=== PATIENT | male | born 1980 | race African-American/Black ===

== ENCOUNTER 2017-04-28 07:52 | Inpatient (IN) | payer MEDICAID ==
[2017-04-28] VITALS (14 sets, daily range): BP systolic 121–187
[~2017-04-28] VITALS: Ht 195.6 cm; Wt 88.0 kg
[2017-04-28] MEDS ORDERED: ONDANSETRON HCL 4 MG/2 ML VIAL IVP ONE (08:15)
[2017-04-28] MEDS ORDERED: PANT40TA4 PO (08:28)
[2017-04-28] MEDS ORDERED: HYDR-4100 PO (08:28)
[2017-04-28] MEDS ORDERED: LIP40 PO (08:30)
[2017-04-28] MEDS ORDERED: LABE200T28 PO (08:33)
[2017-04-28] MEDS ORDERED: CAT.2 PO (08:33)
[2017-04-28] MEDS ORDERED: NOR10 PO (08:33)
[2017-04-28 08:36] LABS: BASOPHILS % (AUTO) 0.3 % (0.0-2.0); EOSINOPHILS % (AUTO) 0.1 % (0.0-4.0); HEMATOCRIT 27.9 % (36-54); LYMPHOCYTES # (AUTO) 0.8 K/uL (1.0-5.5); LYMPHOCYTES % (AUTO) 6.6 % (20.5-51.5); MEAN CORPUSCULAR HEMOGLOBIN 28 pg (27-31); MEAN CORPUSCULAR HGB CONC 32 % (32-36); MEAN CORPUSCULAR VOLUME 88 fL (79.0-98.0); MONOCYTES # (AUTO) 0.9 K/uL (0.0-1.0); MONOCYTES % (AUTO) 7.7 % (1.7-9.3); NEUTROPHILS # (AUTO) 9.8 K/uL (1.8-7.7); NEUTROPHILS % (AUTO) 85.3 % (40.0-70.0); PLATELET COUNT (AUTO) 495 K/uL (130-430); RED BLOOD CELL COUNT(AUTO) 3.17 MIL/uL (4.2-6.2); RED CELL DISTRIBUTION WIDTH 17.3 % (9.0-15.0); WHITE BLOOD COUNT (AUTO) 11.5 K/uL (4.8-10.8)
[2017-04-28] MEDS ORDERED: ASPI-1047 PO (08:38)
[2017-04-28] MEDS ORDERED: HYDR100T25 PO (08:38)
[2017-04-28] MEDS ORDERED: NEU100 PO (08:38)
[2017-04-28] MEDS ORDERED: CALC0.258 PO (08:38)
[2017-04-28] MEDS ORDERED: DOXA2TAB PO (08:45)
[2017-04-28] MEDS ORDERED: ACET325T53 PO (08:45)
[2017-04-28] MEDS ORDERED: INSU100V11 SQ (08:45)
[2017-04-28 08:50] LABS: PROTHROMBIN TIME 10.1 SECS (9.5-12.5)
[2017-04-28 08:57] LABS: ALANINE AMINOTRANSFERASE 21 U/L (12-78); ALBUMIN 2.8 g/dL (3.4-4.8); ANION GAP 23 (5-15); ASPARTATE AMINOTRANSFERASE 28 U/L (10-37); CALCIUM 9.2 mg/dL (8.4-11.0); CHLORIDE 89 mmol/L (98-107); SODIUM SERUM 126 mmol/L (136-145); TOTAL BILIRUBIN 0.6 mg/dL (0.0-1.0)
[2017-04-28] MEDS ORDERED: INSULIN REGULAR, HUMAN 10 UNITS/0.1 ML INJ IVP ONE (09:15)
[2017-04-28 09:20] LABS: POTASSIUM 5.8 mmol/L (3.5-5.1)
[2017-04-28 09:21] LABS: GLUCOSE 1080 mg/dL (70-99); UREA NITROGEN, BLOOD 100 mg/dL (8-21)
[2017-04-28 09:22] LABS: GFR AFRICAN AMERICAN 9 mL/min (>90)
[2017-04-28] MEDS ORDERED: NACL 0.9% 1,000 ML IV ONE (09:45)
[2017-04-28] MEDS ORDERED: INSULIN REGULAR, HUMAN 100 UNITS in NS 99 ML IV ONE ×2 (10:15)
[2017-04-28] MEDS ORDERED: LEVOFLOXACIN 500 MG/D5W 100 ML IV ONE (11:30)
[2017-04-28 11:56] LABS: CALCIUM 9.2 mg/dL (8.4-11.0); PHOSPHORUS 8.6 mg/dL (2.7-4.5); POTASSIUM 4.8 mmol/L (3.5-5.1)
[2017-04-28 12:06] LABS: CREATININE 9.31 mg/dL (0.55-1.30)
[2017-04-28] MEDS ORDERED: PANTOPRAZOLE SODIUM 40 MG/VIAL (PROTONIX) IVP ONE (12:15)
[2017-04-28] MEDS ORDERED: INSULIN REGULAR, HUMAN 100 UNITS in NS 99 ML IV SCH ×2 (12:45)
[2017-04-28] MEDS: cefTRIAXone 1 GM in D5W 50 ML IV SCH (17:29)
[2017-04-28 18:49] LABS: CALCIUM 8.8 mg/dL (8.4-11.0); CREATININE 5.47 mg/dL (0.55-1.30); POTASSIUM 3.1 mmol/L (3.5-5.1)
[2017-04-28] MEDS: DIPHENHYDRAMINE INJ 50 MG/ML VIAL IVP PRN (19:30)
[2017-04-28] MEDS: MORPHINE 2 MG/ML INJ. SYRINGE IVP PRN (22:14)
[2017-04-29] VITALS (20 sets, daily range): BP systolic 156–191
[2017-04-29] MEDS: DIPHENHYDRAMINE INJ 50 MG/ML VIAL IVP PRN ×4 (01:08→18:56)
[2017-04-29] MEDS ORDERED: fentaNYL CITRATE/PF 100 MCG/2 ML AMP ONE ×2 (06:55→06:56)
[2017-04-29] MEDS ORDERED: MIDAZOLAM HCL 5 MG/5 ML VIAL ONE ×2 (06:56)
[2017-04-29] MEDS ORDERED: SIMETHICONE 40 MG/0.6 ML ML ONE (06:56)
[2017-04-29 07:10] LABS: TOTAL IRON BIND. CAPACITY 171 ug/dL (250-450)
[2017-04-29 07:13] LABS: ALBUMIN 2.5 g/dL (3.4-4.8); CALCIUM 8.1 mg/dL (8.4-11.0); CREATININE 5.98 mg/dL (0.55-1.30); PHOSPHORUS 7.3 mg/dL (2.7-4.5); POTASSIUM 3.3 mmol/L (3.5-5.1); TOTAL BILIRUBIN 0.5 mg/dL (0.0-1.0)
[2017-04-29] MEDS ORDERED: fentaNYL CITRATE/PF 100 MCG/2 ML AMP IVP ONE ×4 (07:42→07:54)
[2017-04-29] MEDS ORDERED: MIDAZOLAM HCL 5 MG/5 ML VIAL IVP ONE ×4 (07:44→07:56)
[2017-04-29 08:03] LABS: BASOPHILS # (AUTO) 0.1 K/uL (0.0-0.2); BASOPHILS % (AUTO) 0.9 % (0.0-2.0); EOSINOPHILS # (AUTO) 0.2 K/uL (0.0-0.4); EOSINOPHILS % (AUTO) 2.7 % (0.0-4.0); HEMATOCRIT 26.1 % (36-54); HEMOGLOBIN 8.2 g/dL (14.0-18.0); LYMPHOCYTES # (AUTO) 1.4 K/uL (1.0-5.5); LYMPHOCYTES % (AUTO) 16.3 % (20.5-51.5); MEAN CORPUSCULAR HEMOGLOBIN 27 pg (27-31); MEAN CORPUSCULAR HGB CONC 31 % (32-36); MEAN CORPUSCULAR VOLUME 85 fL (79.0-98.0); MONOCYTES # (AUTO) 0.7 K/uL (0.0-1.0); MONOCYTES % (AUTO) 7.4 % (1.7-9.3); NEUTROPHILS # (AUTO) 6.5 K/uL (1.8-7.7); NEUTROPHILS % (AUTO) 72.7 % (40.0-70.0); PLATELET COUNT (AUTO) 456 K/uL (130-430); RED BLOOD CELL COUNT(AUTO) 3.06 MIL/uL (4.2-6.2); RED CELL DISTRIBUTION WIDTH 17.2 % (9.0-15.0); WHITE BLOOD COUNT (AUTO) 8.9 K/uL (4.8-10.8)
[2017-04-29] MEDS ORDERED: cloNIDine HCL 0.1 MG TABLET PO PRN (08:30)
[2017-04-29] MEDS ORDERED: INSULIN ASPART 100 UNITS/ML, 10 ML VIAL SUBCUT ONE (08:45)
[2017-04-29] MEDS: PANTOPRAZOLE SODIUM 40 MG/VIAL (PROTONIX) IVP SCH ×2 (08:51→20:32)
[2017-04-29] MEDS: CARVEDILOL 12.5 MG TABLET (COREG) PO SCH ×2 (08:51→22:11)
[2017-04-29] MEDS: MORPHINE 2 MG/ML INJ. SYRINGE IVP PRN ×3 (08:52→21:42)
[2017-04-29 10:10] LABS: RETICULOCYTE COUNT 3.1 % (0.5-1.5)
[2017-04-29] MEDS ORDERED: EPOETIN ALFA 20,000 UNITS/ML VIAL SUBCUT ONE (10:15)
[2017-04-29] MEDS ORDERED: HYDROcodone/ACETAMIN 10-325 MG TAB PO PRN (10:45)
[2017-04-29] MEDS ORDERED: PANTOPRAZOLE SODIUM 40 MG TAB PO SCH (10:45)
[2017-04-29] MEDS ORDERED: ACETAMINOPHEN 325 MG TABLET PO PRN (10:45)
[2017-04-29] MEDS: SOD FERRIC GLUC COMPLEX/SUC 125 MG in NS 100 ML IV SCH (11:34)
[2017-04-29 12:07] LABS: BILIRUBIN,URINE NEGATIVE (NEGATIVE); BLOOD, URINE 1+ (NEGATIVE); CLARITY/URINE CLEAR (CLEAR); COLOR,URINE YELLOW (YELLOW); GLUCOSE,URINE 3+ (NEGATIVE); KETONES,URINE NEGATIVE (NEGATIVE); LEUKOCYTE ESTERASE ,URINE NEGATIVE (NEGATIVE); NITRITE, URINE NEGATIVE (NEGATIVE); PH,URINE 6.5 (5.0-8.0); PROTEIN URINE 3+ (NEGATIVE); UROBILINOGEN,URINE 0.2 (0.2-1.0)
[2017-04-29] MEDS: INSULIN ASPART 100 UNITS/ML, 10 ML VIAL (NovoLOG) SUBCUT PRN ×3 (12:09→22:10)
[2017-04-29] MEDS: CALCITRIOL 0.25 MCG CAPSULE PO SCH (13:01)
[2017-04-29] MEDS: LABETALOL HCL 100 MG TABLET PO SCH ×2 (13:01→21:59)
[2017-04-29] MEDS: GABAPENTIN 100 MG CAPSULE PO SCH ×2 (13:02→21:59)
[2017-04-29] MEDS: cloNIDine HCL 0.2 MG TABLET PO SCH ×2 (13:02→21:59)
[2017-04-29] MEDS: hydrALAZINE HCL 25 MG TABLET PO SCH ×3 (13:03→22:00)
[2017-04-29] MEDS: cefTRIAXone 1 GM in D5W 50 ML IV SCH (13:07)
[2017-04-29 13:31] LABS: BACTERIA,URINE RARE /HPF (None Seen); MUCUS,URINE 1+ /LPF (None Seen); WBC,URINE 0-3 /HPF (0-3)
[2017-04-29 15:40] LABS: ALBUMIN 2.4 g/dL (3.4-4.8); CALCIUM 7.7 mg/dL (8.4-11.0); CREATININE 6.59 mg/dL (0.55-1.30); POTASSIUM 3.8 mmol/L (3.5-5.1); TOTAL BILIRUBIN 0.3 mg/dL (0.0-1.0)
[2017-04-29] MEDS ORDERED: VANCOMYCIN HCL 750 MG in NS 250 ML IV SCH (17:00)
[2017-04-29] MEDS: DOXAZOSIN MESYLATE 2 MG TABLET PO SCH (22:00)
[2017-04-29] MEDS: ATORVASTATIN 20 MG TABLET PO SCH (22:01)
[2017-04-30 00:39] VITALS: BP_SYST 144
[2017-04-30] MEDS: DIPHENHYDRAMINE INJ 50 MG/ML VIAL IVP PRN ×4 (03:20→21:32)
[2017-04-30 05:03] VITALS: BP_SYST 150
[2017-04-30] MEDS: INSULIN ASPART 100 UNITS/ML, 10 ML VIAL (NovoLOG) SUBCUT PRN ×3 (05:50→17:33)
[2017-04-30] MEDS: hydrALAZINE HCL 25 MG TABLET PO SCH ×3 (05:51→22:46)
[2017-04-30 06:47] LABS: BASOPHILS # (AUTO) 0.1 K/uL (0.0-0.2); BASOPHILS % (AUTO) 1.1 % (0.0-2.0); EOSINOPHILS # (AUTO) 0.3 K/uL (0.0-0.4); EOSINOPHILS % (AUTO) 4.6 % (0.0-4.0); HEMATOCRIT 27.3 % (36-54); HEMOGLOBIN 8.8 g/dL (14.0-18.0); LYMPHOCYTES # (AUTO) 1.2 K/uL (1.0-5.5); LYMPHOCYTES % (AUTO) 17.5 % (20.5-51.5); MEAN CORPUSCULAR HEMOGLOBIN 27 pg (27-31); MEAN CORPUSCULAR HGB CONC 32 % (32-36); MEAN CORPUSCULAR VOLUME 84 fL (79.0-98.0); MONOCYTES # (AUTO) 0.6 K/uL (0.0-1.0); MONOCYTES % (AUTO) 8.3 % (1.7-9.3); NEUTROPHILS # (AUTO) 4.6 K/uL (1.8-7.7); NEUTROPHILS % (AUTO) 68.5 % (40.0-70.0); PLATELET COUNT (AUTO) 417 K/uL (130-430); RED BLOOD CELL COUNT(AUTO) 3.24 MIL/uL (4.2-6.2); WHITE BLOOD COUNT (AUTO) 6.8 K/uL (4.8-10.8)
[2017-04-30 07:17] LABS: ALBUMIN 2.4 g/dL (3.4-4.8); CREATININE 7.1 mg/dL (0.55-1.30); POTASSIUM 3.6 mmol/L (3.5-5.1); TOTAL BILIRUBIN 0.5 mg/dL (0.0-1.0)
[2017-04-30 07:35] LABS: TOTAL IRON BIND. CAPACITY 151 ug/dL (250-450)
[2017-04-30 08:07] VITALS: BP_SYST 167
[2017-04-30] MEDS: GABAPENTIN 100 MG CAPSULE PO SCH ×2 (08:47→21:29)
[2017-04-30] MEDS: PANTOPRAZOLE SODIUM 40 MG/VIAL (PROTONIX) IVP SCH ×2 (08:47→21:30)
[2017-04-30] MEDS: LABETALOL HCL 100 MG TABLET PO SCH ×2 (08:48→21:30)
[2017-04-30] MEDS: CALCITRIOL 0.25 MCG CAPSULE PO SCH (08:48)
[2017-04-30] MEDS: ASPIRIN 81 MG TABLET(ECOTRIN) PO SCH (08:48)
[2017-04-30] MEDS: amLODIPine BESYLATE 10 MG TABLET PO SCH (08:49)
[2017-04-30] MEDS: cloNIDine HCL 0.2 MG TABLET PO SCH ×2 (08:49→21:42)
[2017-04-30] MEDS: CARVEDILOL 12.5 MG TABLET (COREG) PO SCH ×2 (08:49→21:41)
[2017-04-30] MEDS: SOD FERRIC GLUC COMPLEX/SUC 125 MG in NS 100 ML IV SCH (09:57)
[2017-04-30] MEDS ORDERED: VANCOMYCIN HCL 1 GM/NS PREMIX 250 ML IV ONE (10:00)
[2017-04-30] MEDS: cefTRIAXone 1 GM in D5W 50 ML IV SCH (10:04)
[2017-04-30] MEDS: MORPHINE 4 MG/ML INJ. SYRINGE IVP PRN ×3 (10:13→18:51)
[2017-04-30 10:22] LABS: HEPATITIS A AB, IgM Negative (Negative); HEPATITIS B CORE AB, IgM Negative (Negative); HEPATITIS B SURFACE AG Negative (Negative)
[2017-04-30 13:02] VITALS: BP_SYST 163
[2017-04-30 16:27] VITALS: BP_SYST 160
[2017-04-30] MEDS: INSULIN ASPART 100 UNITS/ML, 10 ML VIAL SUBCUT SCH (17:31)
[2017-04-30] MEDS: DOXAZOSIN MESYLATE 2 MG TABLET PO SCH (21:28)
[2017-04-30] MEDS: ATORVASTATIN 20 MG TABLET PO SCH (21:41)
[2017-05-01] MEDS: MORPHINE 4 MG/ML INJ. SYRINGE IVP PRN ×5 (00:26→22:22)
[2017-05-01 00:29] VITALS: BP_SYST 156
[2017-05-01 06:27] LABS: BASOPHILS # (AUTO) 0.1 K/uL (0.0-0.2); BASOPHILS % (AUTO) 1.1 % (0.0-2.0); EOSINOPHILS # (AUTO) 0.5 K/uL (0.0-0.4); EOSINOPHILS % (AUTO) 8.3 % (0.0-4.0); HEMATOCRIT 28.4 % (36-54); HEMOGLOBIN 9.1 g/dL (14.0-18.0); LYMPHOCYTES # (AUTO) 1.4 K/uL (1.0-5.5); LYMPHOCYTES % (AUTO) 26.6 % (20.5-51.5); MEAN CORPUSCULAR HEMOGLOBIN 27 pg (27-31); MEAN CORPUSCULAR HGB CONC 32 % (32-36); MEAN CORPUSCULAR VOLUME 84 fL (79.0-98.0); MONOCYTES # (AUTO) 0.5 K/uL (0.0-1.0); MONOCYTES % (AUTO) 9.8 % (1.7-9.3); NEUTROPHILS # (AUTO) 2.9 K/uL (1.8-7.7); NEUTROPHILS % (AUTO) 54.2 % (40.0-70.0); PLATELET COUNT (AUTO) 402 K/uL (130-430); RED BLOOD CELL COUNT(AUTO) 3.36 MIL/uL (4.2-6.2); RED CELL DISTRIBUTION WIDTH 17.1 % (9.0-15.0); WHITE BLOOD COUNT (AUTO) 5.4 K/uL (4.8-10.8)
[2017-05-01 06:42] LABS: ALBUMIN 2.4 g/dL (3.4-4.8); CALCIUM 8.2 mg/dL (8.4-11.0); POTASSIUM 4.6 mmol/L (3.5-5.1); TOTAL BILIRUBIN 0.5 mg/dL (0.0-1.0); VANCOMYCIN,RANDOM 22.8 ug/mL
[2017-05-01] MEDS: INSULIN ASPART 100 UNITS/ML, 10 ML VIAL SUBCUT SCH ×3 (06:44→17:00)
[2017-05-01] MEDS: hydrALAZINE HCL 25 MG TABLET PO SCH ×3 (06:45→22:21)
[2017-05-01] MEDS: DIPHENHYDRAMINE INJ 50 MG/ML VIAL IVP PRN ×3 (06:45→18:16)
[2017-05-01 07:06] LABS: CREATININE 7.79 mg/dL (0.55-1.30)
[2017-05-01] MEDS: INSULIN ASPART 100 UNITS/ML, 10 ML VIAL (NovoLOG) SUBCUT PRN ×3 (07:11→21:18)
[2017-05-01 08:27] VITALS: BP_SYST 140
[2017-05-01] MEDS: CARVEDILOL 12.5 MG TABLET (COREG) PO SCH ×2 (09:00→22:21)
[2017-05-01] MEDS: cloNIDine HCL 0.2 MG TABLET PO SCH ×2 (09:00→21:03)
[2017-05-01] MEDS: LABETALOL HCL 100 MG TABLET PO SCH ×2 (09:00→21:04)
[2017-05-01] MEDS: amLODIPine BESYLATE 10 MG TABLET PO SCH (09:00)
[2017-05-01] MEDS: ASPIRIN 81 MG TABLET(ECOTRIN) PO SCH (09:00)
[2017-05-01] MEDS: CALCITRIOL 0.25 MCG CAPSULE PO SCH (09:38)
[2017-05-01] MEDS: GABAPENTIN 100 MG CAPSULE PO SCH ×2 (09:38→21:03)
[2017-05-01] MEDS: PANTOPRAZOLE SODIUM 40 MG/VIAL (PROTONIX) IVP SCH ×2 (09:38→21:02)
[2017-05-01] MEDS: cefTRIAXone 1 GM in D5W 50 ML IV SCH (13:54)
[2017-05-01 14:45] VITALS: BP_SYST 161
[2017-05-01 16:00] VITALS: BP_SYST 185
[2017-05-01] MEDS: DEXTROSE 50%-WATER 50 ML DISP.SYRIN IVP PRN (16:39)
[2017-05-01] MEDS ORDERED: DEXTROSE 50%-WATER 50 ML DISP.SYRIN IVP PRN (16:45)
[2017-05-01] MEDS ORDERED: GLUCOSE 15 GM GEL (in 37.5 GM TUBE) PO PRN ×2 (16:45)
[2017-05-01 20:00] VITALS: BP_SYST 179
[2017-05-01] MEDS: DOXAZOSIN MESYLATE 2 MG TABLET PO SCH (21:02)
[2017-05-01] MEDS: ATORVASTATIN 20 MG TABLET PO SCH (21:03)
[2017-05-01 23:00] VITALS: BP_SYST 158
[2017-05-02] VITALS (7 sets, daily range): BP systolic 135–191
[2017-05-02] MEDS: DIPHENHYDRAMINE INJ 50 MG/ML VIAL IVP PRN ×4 (00:08→17:58)
[2017-05-02] MEDS: hydrALAZINE HCL 25 MG TABLET PO SCH ×3 (05:30→21:11)
[2017-05-02] MEDS: MORPHINE 4 MG/ML INJ. SYRINGE IVP PRN ×3 (06:09→16:45)
[2017-05-02] MEDS: INSULIN ASPART 100 UNITS/ML, 10 ML VIAL SUBCUT SCH ×3 (06:46→17:00)
[2017-05-02] MEDS: INSULIN ASPART 100 UNITS/ML, 10 ML VIAL (NovoLOG) SUBCUT PRN ×2 (06:51→12:22)
[2017-05-02] MEDS: ASPIRIN 81 MG TABLET(ECOTRIN) PO SCH (09:02)
[2017-05-02] MEDS: GABAPENTIN 100 MG CAPSULE PO SCH ×2 (09:02→20:11)
[2017-05-02] MEDS: amLODIPine BESYLATE 10 MG TABLET PO SCH (09:03)
[2017-05-02] MEDS: LABETALOL HCL 100 MG TABLET PO SCH ×2 (09:04→20:10)
[2017-05-02] MEDS: cloNIDine HCL 0.2 MG TABLET PO SCH ×2 (09:05→20:09)
[2017-05-02] MEDS: CALCITRIOL 0.25 MCG CAPSULE PO SCH (09:05)
[2017-05-02] MEDS: PANTOPRAZOLE SODIUM 40 MG/VIAL (PROTONIX) IVP SCH ×2 (09:07→20:11)
[2017-05-02] MEDS: CARVEDILOL 12.5 MG TABLET (COREG) PO SCH ×2 (09:21→20:15)
[2017-05-02] MEDS ORDERED: VANCOMYCIN HCL 1,000 MG in NS 250 ML IV SCH (12:00)
[2017-05-02] MEDS: cefTRIAXone 1 GM in D5W 50 ML IV SCH (12:24)
[2017-05-02] MEDS: DEXTROSE 50%-WATER 50 ML DISP.SYRIN IVP PRN (17:06)
[2017-05-02] MEDS: ATORVASTATIN 20 MG TABLET PO SCH (20:10)
[2017-05-02] MEDS: DOXAZOSIN MESYLATE 2 MG TABLET PO SCH (20:11)
[2017-05-03] MEDS ORDERED: INSULIN ASPART 100 UNITS/ML, 10 ML VIAL SUBCUT SCH (07:00)
== END 2017-05-02 21:25 | DRG 721 ==
LOC: SED 07:52 → SIC 10:14 → STU 04-29 18:15 → SMU 04-30 18:27
PROVIDERS: ADMIT Internal Medicine; ATTEND Internal Medicine
PROC: 5A1D70Z Performance of Urinary Filtration, Intermittent, Less than 6 Hours Per Day (ICD-10-PCS; 2017-04-28)
PROC: 0DB58ZX Excision of Esophagus, Via Natural or Artificial Opening Endoscopic, Diagnostic (ICD-10-PCS; 2017-04-29)
PROC: 0DB68ZX Excision of Stomach, Via Natural or Artificial Opening Endoscopic, Diagnostic (ICD-10-PCS; principal; 2017-04-29 07:40)
PROC: 5A1D70Z Performance of Urinary Filtration, Intermittent, Less than 6 Hours Per Day (ICD-10-PCS; 2017-05-01)
DX: T80.211A Bloodstream infection due to central venous catheter, initial encounter (principal); A41.2 Sepsis due to unspecified staphylococcus; E43 Unspecified severe protein-calorie malnutrition; N18.6 End stage renal disease; E10.10 Type 1 diabetes mellitus with ketoacidosis without coma; K92.0 Hematemesis; I12.0 Hypertensive chronic kidney disease with stage 5 chronic kidney disease or end stage renal disease; E10.22 Type 1 diabetes mellitus with diabetic chronic kidney disease; E10.319 Type 1 diabetes mellitus with unspecified diabetic retinopathy without macular edema; H54.8 Legal blindness, as defined in USA; N39.0 Urinary tract infection, site not specified; K20.9 Esophagitis, unspecified; W19.XXXA Unspecified fall, initial encounter; Y84.8 Other medical procedures as the cause of abnormal reaction of the patient, or of later complication, without mention of misadventure at the time of the procedure; E87.5 Hyperkalemia; D63.1 Anemia in chronic kidney disease; M47.9 Spondylosis, unspecified; Z99.2 Dependence on renal dialysis; Z91.19 Patient's noncompliance with other medical treatment and regimen; Z79.899 Other long term (current) drug therapy; Z91.14 Patient's other noncompliance with medication regimen; Z88.8 Allergy status to other drugs, medicaments and biological substances; Z79.4 Long term (current) use of insulin; Z68.23 Body mass index [BMI] 23.0-23.9, adult
CPT/HCPCS: 36415; 36600; 43239; 72125-TC; 80048; 80053; 80202-TC; 81000-TC; 82009-TC; 82803-TC; 82962; 83540-TC; 83550-TC; 83605; 83735-TC; 83880; 84100-TC; 84484; 85025; 85044-TC; 85610-TC; 85730-TC; 86705; 86709; 86886; 86900; 86901; 87040-TC; 87081; 87340; 88305; 88312; 88313; 90935; 90937; 93005; 96374; 99285; C9113; J0696; J0885; J1200; J1815; J1956; J2250; J2270; J2405; J2916; J3010; J3370; J7030; J7050; J7060